=== PATIENT | male | born 1995 | race Caucasian/White ===

== ENCOUNTER 2019-05-13 13:55 | Emergency (ER) | payer OTHER ==
[~2019-05-13] VITALS: Ht 180.3 cm; Wt 82.0 kg
[2019-05-13 14:10] VITALS: BP 133/96
[2019-05-13] MEDS ORDERED: DICL25TA12 PO (15:48)
== END 2019-05-13 16:34 | disposition home or self-care (01) ==
LOC: ER 13:55
DX: R10.31 Right lower quadrant pain (principal); Z98.890 Other specified postprocedural states
CPT/HCPCS: 99283